=== PATIENT | male | born 1960 | race Caucasian/White ===

== ENCOUNTER 2016-10-06 15:41 | Emergency (ER) | payer OTHER ==
[~2016-10-06] VITALS: Ht 180.3 cm; Wt 95.8 kg
[~2016-10-06 15:41] MED LIST: ASA PO; AUGMENTIN875 MG PO; CLINDAMYCIN HC300 MG PO; FIORICET,ESG1 TABLET PO; Glucotrol XL PO; Hydrodiuril,Oretic,E PO; INVanz IV; MEDROL DOSEPAK4 MG PO; NAPROSYN500 MG PO; NORCO 5/3251 TABLET PO; PRILOSEC PO; Theragran-M,Centrum, PO; Tylenol Regular Stre PO; ULTRAM50 MG PO; Zestril,Prinivil PO
[2016-10-06 16:49] LABS: HEMATOCRIT 49.3 % (38.0-50.0); MCH 33.3 PG (29.0-34.0); MCHC 36.7 G/DL (30.0-36.0); MCV 90.6 FL (86-99); MEAN PLAT.VOLUME 8.4 uM^3 (9.0-12.4); PLATELET COUNT 180 K/uL (156-360); RBC DIS.WIDTH-CV 12.8 % (11.8-14.6); RBC DIS.WIDTH-SD 42.3 % (39-53); RED BLOOD COUNT 5.44 M/uL (4.00-5.50); WHITE BLOOD COUNT 6.2 K/uL (4.1-10.2)
[2016-10-06 17:00] LABS: CHLORIDE 101 mEq/L (99-109); POTASSIUM 3.9 mEq/L (3.7-5.4); SODIUM 135 mEq/L (136-147)
[2016-10-06 17:02] LABS: GLUCOSE 89 mg/dL (70-99)
[2016-10-06 17:03] LABS: ANION GAP 9 MEQ/L (2-14)
[2016-10-06 17:05] LABS: SERUM ETHYL ALCOHOL < 10 mg/dL
[2016-10-06 17:06] LABS: GFR ESTIMATE (CALCULATED) > 59 mL/min/
[2016-10-06 17:07] LABS: UREA NITROGEN (BUN) 6 mg/dL (9-23)
[2016-10-06 17:25] VITALS: BP 147/90
== END 2016-10-06 17:25 | disposition home or self-care (01) ==
LOC: EME 15:41
PROVIDERS: Emergency Medicine
DX: B34.9 Viral infection, unspecified (principal); R51 Headache; E11.9 Type 2 diabetes mellitus without complications; I10 Essential (primary) hypertension; K21.9 Gastro-esophageal reflux disease without esophagitis; Z79.82 Long term (current) use of aspirin; F17.200 Nicotine dependence, unspecified, uncomplicated
CPT/HCPCS: 80048; 85027; 99281; 99283; G0480; J1885; J2060

== ENCOUNTER 2017-02-19 01:11 | Emergency (ER) | payer OTHER ==
[~2017-02-19] VITALS: Ht 180.3 cm; Wt 103.9 kg
[2017-02-19] MEDS ORDERED: FLEXERIL10 MG PO (02:21)
[2017-02-19] MEDS ORDERED: NAPROSYN500 MG PO (02:21)
[2017-02-19] MEDS ORDERED: LIDODERM 5% P1 PATCH TD (02:21)
[2017-02-19 02:53] VITALS: BP 167/95
== END 2017-02-19 02:53 | disposition home or self-care (01) ==
LOC: EME 01:11
DX: M54.2 Cervicalgia (principal); M62.838 Other muscle spasm; E11.9 Type 2 diabetes mellitus without complications; I10 Essential (primary) hypertension; F17.200 Nicotine dependence, unspecified, uncomplicated
CPT/HCPCS: 93005; 99281; 99283